=== PATIENT | female | born 1935 | race Asian ===

== ENCOUNTER 2018-03-16 10:07 | Emergency (ER) | payer MEDICAID ==
[~2018-03-16 10:07] MED LIST: DOCU-28 PO
[2018-03-16] MEDS ORDERED: rabies vaccine (PCEC)/PF 2.5 unit kit IMVAC ONE (10:45)
[2018-03-16 12:00] VITALS: BP 128/63
== END 2018-03-16 12:05 | disposition home or self-care (01) ==
LOC: ER 10:08
DX: S61.250D Open bite of right index finger without damage to nail, subsequent encounter (principal); W53.21XD Bitten by squirrel, subsequent encounter; G89.29 Other chronic pain; Z23 Encounter for immunization; Z79.899 Other long term (current) drug therapy
CPT/HCPCS: 90471; 90675; 99283

== ENCOUNTER 2018-03-23 08:23 | Emergency (ER) | payer MEDICAID ==
[~2018-03-23] VITALS: Ht 152.4 cm; Wt 60.0 kg
[2018-03-23] MEDS ORDERED: rabies vaccine (PCEC)/PF 2.5 unit kit IMVAC ONE (08:45)
[2018-03-23] MEDS ORDERED: TETanus/Pertussis (Acell)/Diphther VAC/PF (Tdap-Adult) 0.5ml syringe IMVAC ONE (08:50)
[2018-03-23 10:03] VITALS: BP 204/119
[2018-03-23] MEDS ORDERED: LEVO750T21 PO (10:12)
== END 2018-03-23 10:28 | disposition home or self-care (01) ==
LOC: ER 08:23
DX: J20.9 Acute bronchitis, unspecified (principal); Z23 Encounter for immunization; G89.29 Other chronic pain; Z79.899 Other long term (current) drug therapy; Z98.890 Other specified postprocedural states
CPT/HCPCS: 71046; 90471; 90472; 90675; 90715; 99284

== ENCOUNTER 2018-03-27 11:43 | Emergency (ER) | payer MEDICAID ==
[~2018-03-27] VITALS: Ht 170.2 cm; Wt 59.0 kg
[~2018-03-27 11:43] MED LIST changes: +LEVO750T21 PO
[2018-03-27 11:57] VITALS: BP 182/103
[2018-03-27] MEDS ORDERED: ipratropium/albuterol 3ml nebule NEB ONE (12:35)
[2018-03-27] MEDS ORDERED: benzonatate 100mg capsule PO ONE (12:35)
[2018-03-27 12:43] LABS: BASOPHILS % (AUTO) 0.3 % (0-1); EOSINOPHILS # (AUTO) 0.4 X10'3 (0-0.9); EOSINOPHILS % (AUTO) 4.8 % (0-6); HEMATOCRIT 39.8 % (35.0-45.0); HEMOGLOBIN 13.1 g/dl (12.0-16.0); LYMPHOCYTES # (AUTO) 1.3 X10'3 (1.1-4.8); LYMPHOCYTES % (AUTO) 16.4 % (21-51); MEAN CORPUSCULAR HEMOGLOBIN 26.2 PG (27.0-31.0); MEAN CORPUSCULAR VOLUME 79.5 FL (78-98); MEAN PLATELET VOLUME 8.1 FL (7.4-10.4); MONOCYTES # (AUTO) 0.5 X10'3 (0-0.9); MONOCYTES % (AUTO) 6.3 % (2-12); NEUTROPHILS # (AUTO) 5.9 X10'3 (1.8-7.7); NEUTROPHILS % (AUTO) 72.2 % (42-75); PLATELET COUNT 286 X10'3 (140-440); RED CELL DISTRIBUTION WIDTH 13.6 % (11.5-14.5); WHITE BLOOD COUNT 8.1 X10'3 (4.5-11.0)
[2018-03-27 12:53] LABS: ANION GAP 9 (8-16); BLOOD UREA NITROGEN 16 MG/DL (7-18); BUN/CREATININE RATIO 11.3 (6.6-38.0); CALCIUM 8.7 MG/DL (8.5-10.1); CHLORIDE 106 MMOL/L (99-107); CREATININE 1.42 MG/DL (0.40-0.90); GLUCOSE 134 MG/DL (70-104); POTASSIUM 3.6 MMOL/L (3.5-5.1); SODIUM 142 MMOL/L (135-145); TOTAL CARBON DIOXIDE 27.2 MMOL/L (24-32); eGFR 35 ML/MIN
[2018-03-27 12:54] LABS: ALANINE AMINOTRANSFERASE 11 U/L (12-78); ALBUMIN 3.6 G/DL (3.4-5.0); ALBUMIN/GLOBULIN RATIO 0.7 (1.1-1.5); ALKALINE PHOSPHATASE 94 IU/L (46-116); ASPARTATE AMINO TRANSFERASE 13 U/L (10-37); BILIRUBIN,TOTAL 0.4 MG/DL (0.1-1.0); TOTAL PROTEIN 8.6 G/DL (6.4-8.2)
[2018-03-27] MEDS ORDERED: ALBU18HF2 INH (13:35)
[2018-03-27] MEDS ORDERED: BENZ-16 PO (13:35)
== END 2018-03-27 14:02 | disposition home or self-care (01) ==
LOC: ER 11:44
DX: J20.9 Acute bronchitis, unspecified (principal); I10 Essential (primary) hypertension; Z87.891 Personal history of nicotine dependence; Z98.890 Other specified postprocedural states; G89.29 Other chronic pain; Z79.899 Other long term (current) drug therapy
CPT/HCPCS: 36415; 71046; 80053; 83605; 85025; 87040; 94640; 94760; 99285

== ENCOUNTER 2018-07-11 14:14 | Emergency (ER) | payer MEDICAID ==
[~2018-07-11] VITALS: Ht 152.4 cm; Wt 61.0 kg
[~2018-07-11 14:14] MED LIST changes: +ALBU18HF2 INH; -LEVO750T21 PO
[2018-07-11] MEDS ORDERED: benzonatate 100mg capsule PO ONE (14:40)
[2018-07-11] MEDS ORDERED: ipratropium/albuterol 3ml nebule NEB ONE (14:40)
[2018-07-11] MEDS ORDERED: ALBU18HF2 INH (15:29)
[2018-07-11] MEDS ORDERED: BENZ-16 PO (15:29)
[2018-07-11 15:45] VITALS: BP 178/106
== END 2018-07-11 15:47 | disposition home or self-care (01) ==
LOC: ER 14:15
DX: J98.01 Acute bronchospasm (principal); I10 Essential (primary) hypertension; G89.29 Other chronic pain; E11.9 Type 2 diabetes mellitus without complications; Z87.891 Personal history of nicotine dependence; Z79.899 Other long term (current) drug therapy
CPT/HCPCS: 71046; 94640; 94760; 99285